=== PATIENT | male | born 1965 | race Caucasian/White ===

== ENCOUNTER 2023-11-03 02:36 | Emergency (ER) | payer OTHER ==
[~2023-11-03] VITALS: Ht 172.7 cm; Wt 97.2 kg
[2023-11-03 02:40] VITALS: BP 146/83; PULSE 75; RESP 22; TEMP 97.4; O2SAT 95
[2023-11-03] MEDS: NACL 0.9% 1,000 ML IV ONE (03:25)
[2023-11-03] MEDS: ACETAMINOPHEN EXTRA STRENGTH 500 MG TAB PO ONE (03:30)
[2023-11-03] MEDS: ONDANSETRON 4 MG/2 ML VIAL IVP ONE ×2 (03:36→03:42)
[2023-11-03] MEDS: KETOROLAC 30 MG/ML VIAL IVP ONE (03:38)
[2023-11-03 03:41] LABS: BASOPHILS % (AUTO) 0.3 % (0.0-2.0); EOSINOPHILS # (AUTO) 0.1 K/uL (0-0.4); EOSINOPHILS % (AUTO) 0.7 % (0.0-4.0); HEMOGLOBIN 15.5 g/dL (12.0-18.0); LYMPHOCYTES # (AUTO) 1.5 K/uL (2.0-11.5); LYMPHOCYTES % (AUTO) 12.4 % (20.5-51.1); MEAN CORPUSCULAR HEMOGLOBIN 30 pg (27-31); MEAN CORPUSCULAR HGB CONC 34 g/dL (33-37); MEAN CORPUSCULAR VOLUME 89.1 fL (80-94); MONOCYTES # (AUTO) 0.8 K/uL (0.8-1.0); MONOCYTES % (AUTO) 6.2 % (1.7-9.3); NEUTROPHILS % (AUTO) 80.4 % (42.2-75.2); PLATELET COUNT (AUTO) 298 K/uL (140-450); RED BLOOD CELL COUNT(AUTO) 5.16 MIL/uL (4.20-6.10); RED CELL DISTRIBUTION WIDTH 14.3 % (11.6-13.7); WHITE BLOOD COUNT (AUTO) 12.4 K/uL (4.8-10.8)
[2023-11-03] MEDS: MORPHINE SULFATE 4 MG/ML SYR IVP ONE ×2 (03:41→05:02)
[2023-11-03 03:56] LABS: ANION GAP 18.7 (8-16); CALCIUM 9.1 mg/dL (8.5-10.1); CARBON DIOXIDE 20.1 mmol/L (21-32); CREATININE 1.3 mg/dL (0.6-1.3); POTASSIUM 3.8 mmol/L (3.5-5.1)
[2023-11-03 04:02] LABS: ALBUMIN 3.8 g/dL (3.4-5.0); BILIRUBIN,DIRECT 0.1 mg/dL (0.0-0.3); TOTAL BILIRUBIN 0.5 mg/dL (0.0-1.0); TOTAL PROTEIN, SERUM 7.1 g/dL (6.4-8.2)
[2023-11-03] MEDS ORDERED: TAMS0.4C96 PO (06:47)
[2023-11-03] MEDS ORDERED: ONDA-188 PO (06:48)
[2023-11-03] MEDS ORDERED: ACET-5629 PO (06:48)
[2023-11-03 06:59] LABS: APPEARANCE,URINE SL CLOUDY (CLEAR); BILIRUBIN,URINE 1+ (NEGATIVE); BLOOD, URINE 3+ (NEGATIVE); COLOR,URINE BROWN (YELLOW); LEUKOCYTE ESTERASE ,URINE NEGATIVE (NEGATIVE); NITRITE, URINE NEGATIVE (NEGATIVE); PH,URINE 5.5 (5.0-9.0); PROTEIN,URINE 1+ (NEGATIVE); UGLUCOSE NEGATIVE (NEGATIVE); UROBILINOGEN,URINE 0.2 EU/dL (0.2 - 1)
[2023-11-03 07:38] LABS: ICTOTEST NEGATIVE (NEGATIVE); RBC,URINE TOO NUMEROUS TO COUN /HPF (0-5); WBC,URINE 0-5 /HPF (0-5)
[2023-11-03 07:39] LABS: BACTERIA,URINE OCCASSIONAL /HPF (None Seen); CALCIUM OXALATE CRYSTALS,UR 0-10 /HPF (None Seen); MUCUS,URINE 1+ /LPF (None Seen); SQUAMOUS EPITHELIAL CELL,UR 4-10 (MOD) /LPF (0-3 (FEW))
[2023-11-03] MEDS: oxyCODONE/APAP 5/325 MG 1 TAB TAB PO ONE (08:05)
[2023-11-03 08:09] VITALS: BP 135/74; PULSE 69; RESP 20; TEMP 97.4; O2SAT 97
== END 2023-11-03 08:09 | disposition home or self-care (01) ==
LOC: MED 02:36
DX: N20.1 Calculus of ureter (principal); R11.2 Nausea with vomiting, unspecified; Z79.899 Other long term (current) drug therapy
CPT/HCPCS: 36415; 74176; 80048; 80076; 81001; 83690; 85025; 96361; 96374; 96375; 96376; 99285; J1885; J2270; J2405; J7030